=== PATIENT | male | born 1975 | race Caucasian/White ===

== ENCOUNTER 2016-11-06 09:42 | Observation (INO) | payer OTHER ==
[~2016-11-06] VITALS: Ht 175.3 cm; Wt 68.4 kg
[~2016-11-06 09:42] MED LIST: OXYC-302 PO
[2016-11-06 10:56] LABS: DAU SCREEN DISCLAIMER
[2016-11-06 11:14] LABS: BLOOD UREA NITROGEN 12 mg/dL (7-18)
[2016-11-06 11:15] LABS: ACETAMINOPHEN < 2 mcg/mL (10-30)
[2016-11-06] MEDS ORDERED: HYDROmorphone 1 MG/ML, 1ML IM ONE (12:30)
[2016-11-06] MEDS ORDERED: LORazepam 1MG TABLET ONE (12:55)
[2016-11-06] MEDS ORDERED: LORazepam 1MG TABLET PO ONE (13:00)
[2016-11-06] MEDS ORDERED: HYDROmorphone 1 MG/ML, 1ML ONE (13:16)
[2016-11-06] MEDS ORDERED: NICOTINE 14MG/24 HR PATCH.TD24 TD SCH (14:00)
[2016-11-06] MEDS ORDERED: HYDROcodone/APAP 5/325 TABLET PO PRN (14:00)
[2016-11-06] MEDS ORDERED: ACETAMINOPHEN 325 MG TABLET PO PRN (14:00)
[2016-11-06] MEDS ORDERED: ONDANSETRON ODT 4 MG PO PRN (14:00)
[2016-11-06] MEDS ORDERED: LORazepam 1MG TABLET PO PRN (14:00)
[2016-11-06 14:26] LABS: IS PT STATUS REG ER OR PRE ER? YES
[2016-11-06 16:27] VITALS: BP 114/70
[2016-11-06 19:35] VITALS: BP 104/62
[2016-11-06] MEDS ORDERED: OLANZAPINE 5 MG TABLET PO SCH (21:00)
[2016-11-06] MEDS ORDERED: OXYcodone/APAP 5/325MG TABLET PO PRN (22:30)
[2016-11-07 07:55] VITALS: BP 100/64
[2016-11-07] MEDS ORDERED: OLAN5TAB9 PO (08:10)
[2016-11-07] MEDS ORDERED: NICO1PAT4 TD (08:10)
[2016-11-07] MEDS ORDERED: LORA-446 PO (08:10)
== END 2016-11-07 09:41 | disposition home or self-care (01) ==
LOC: ED 10:45 → INTOOBSV 13:40 → EDIP 13:40 → 3E 15:12 → UNDODISIN 11-07 09:41
DX: F41.9 Anxiety disorder, unspecified (principal); F32.9 Major depressive disorder, single episode, unspecified; R45.851 Suicidal ideations; R07.9 Chest pain, unspecified; D72.829 Elevated white blood cell count, unspecified; M54.2 Cervicalgia; R13.10 Dysphagia, unspecified; M51.9 Unspecified thoracic, thoracolumbar and lumbosacral intervertebral disc disorder; F17.210 Nicotine dependence, cigarettes, uncomplicated; F10.229 Alcohol dependence with intoxication, unspecified; Z83.3 Family history of diabetes mellitus
CPT/HCPCS: 36415; 70360; 80048; 80307; 80329; 82040; 84484; 85025; 93005; 96372; 99285; G0378; J1170; G0480